=== PATIENT | female | born 1990 | race Caucasian/White ===

== ENCOUNTER 2022-04-23 15:26 | Outpatient (REF) | payer OTHER, SELFPAY ==
--- NOTE | 2022-04-23 14:30 | PAPFT_PTH ---
PATIENT: Barbara Aguilar LOC: [facility] U#:[id number] AGE/SX: 32/F ROOM: RE04/23/[address]: Christina Shetty NP : 1990 BED: DIS: 04/23/2022 SPEC #: [id number] RECD: 04/23/22 17:53 STATUS: EMELY TONY #: [id number] DANELLE: 04/23/22 14:[address]: Christina Shetty NP DEPT: [facility] Cytology RECD BY: Marjan Starr ENTERED: 04/23/22 17:53 SP TYPE: PAPFT LIZZY DR: Unknown,Unknown Tissues: 1 - CX/ENDOCX FOR PAP SMEARS Procedures: PAP THIN PREP/[facility] Screening HPV DNA PROBE Comments: [id number]
== END 2022-04-23 15:27 | disposition home or self-care (01) ==
LOC: LBN 15:26
PROVIDERS: Visit Provider Nurse Practitioner Women's Health
DX: Z12.4 Encounter for screening for malignant neoplasm of cervix (principal); Z11.51 Encounter for screening for human papillomavirus (HPV); R87.810 Cervical high risk human papillomavirus (HPV) DNA test positive
CPT/HCPCS: 88142; 87624